=== PATIENT | female | born 2000 | race Asian ===

== ENCOUNTER 2021-08-17 01:22 | Emergency (ER) | payer OTHER ==
[~2021-08-17] VITALS: Ht 165.1 cm; Wt 49.9 kg
--- NOTE | 2021-08-17 02:04 | NUR ---
PATIENT TO ER TENT BED 1 FOR EVALUATION.
--- NOTE | 2021-08-17 02:07 | NUR ---
PATIENT AWAKE AND ALERT. PT C/O FEVER AND SORE THROAT. VSS. NO S/S OF ACUTE DISTRESS OR SOB NOTED AT THIS TIME. WILL CONTINUE TO MONITOR.
--- NOTE | 2021-08-17 02:10 | NUR ---
JUDY MARTINEZ SIN AT BEDSIDE EXAMINING PATIENT.
[2021-08-17 02:13] VITALS: BP_SYST 110
[2021-08-17] MEDS ORDERED: DEXAMETHASONE SOD PHOSPHATE 4 MG/ML VIAL PO ONE (03:30)
[2021-08-17 03:36] LABS: STREPTOCOCCUS A SCREEN (RAPID) NEGATIVE (NEGATIVE)
[2021-08-17 04:02] VITALS: BP_SYST 106
== END 2021-08-17 03:40 | disposition home or self-care (01) ==
LOC: SED 01:22
DX: J03.90 Acute tonsillitis, unspecified (principal); Z20.822 Contact with and (suspected) exposure to COVID-19
CPT/HCPCS: 86403; 87081; 87426; 99283; J1100; 36415

== ENCOUNTER 2021-12-14 20:24 | Emergency (ER) | payer OTHER ==
[~2021-12-14] VITALS: Ht 160 cm; Wt 54.0 kg
[2021-12-14 20:32] VITALS: BP_SYST 109
--- NOTE | 2021-12-14 20:35 | NUR ---
PATIENT STATES SHE HAS HAD PALPITATIONS WITH WEAKNESS/DIZZINESS FOR ONE WEEK. STATES SHE GOOGLED SYMPTOMS AND IS WORRIED SHE IS ANEMIC, NO OTHER COMPLAINTS AT THIS TIME.
[2021-12-14 21:23] LABS: BASOPHILS % (AUTO) 0.5 % (0.0-2.0); EOSINOPHILS % (AUTO) 0.1 % (0.0-4.0); HEMATOCRIT 40.6 % (36-48); HEMOGLOBIN 13.9 g/dL (12.0-16.0); LYMPHOCYTES # (AUTO) 1.7 K/uL (1.0-5.5); LYMPHOCYTES % (AUTO) 30.8 % (20.5-51.5); MEAN CORPUSCULAR HEMOGLOBIN 31 pg (27-31); MEAN CORPUSCULAR HGB CONC 34 % (32-36); MEAN CORPUSCULAR VOLUME 91 fL (79.0-98.0); MONOCYTES # (AUTO) 0.5 K/uL (0.0-1.0); MONOCYTES % (AUTO) 9.4 % (1.7-9.3); NEUTROPHILS # (AUTO) 3.2 K/uL (1.8-7.7); NEUTROPHILS % (AUTO) 59.2 % (40.0-70.0); PLATELET COUNT (AUTO) 342 K/uL (130-430); RED BLOOD CELL COUNT(AUTO) 4.49 MIL/uL (4.2-6.2); RED CELL DISTRIBUTION WIDTH 13.1 % (9.0-15.0); WHITE BLOOD COUNT (AUTO) 5.5 K/uL (4.8-10.8)
[2021-12-14 21:42] LABS: ANION GAP 9 (5-15); CALCIUM 8.8 mg/dL (8.4-11.0); CHLORIDE 103 mmol/L (98-107); CREATININE 1.17 mg/dL (0.55-1.30); GLUCOSE 111 mg/dL (70-99); POTASSIUM 3.3 mmol/L (3.5-5.1); UREA NITROGEN, BLOOD 13 mg/dL (8-21)
[2021-12-14 21:45] LABS: GFR AFRICAN AMERICAN 75 mL/min (>90)
[2021-12-14 21:50] LABS: ALANINE AMINOTRANSFERASE 8 U/L (12-78); ALBUMIN 3.7 g/dL (3.4-4.8); ASPARTATE AMINOTRANSFERASE 13 U/L (10-37); TOTAL BILIRUBIN 0.5 mg/dL (0.0-1.0)
--- NOTE | 2021-12-14 23:45 | NUR ---
PATIENT BROUGHT TO BED 8 AND WAITING FOR MD TO SEE. REPORT GIVEN TO GRACE BACA.
[2021-12-15] MEDS ORDERED: POTASSIUM CHLORIDE 20 MEQ TAB.PRT.SR PO ONE (01:30)
--- NOTE | 2021-12-15 01:35 | NUR ---
PT LAYING IN BED. NO SIGNS OF DISTRESS. PT LAUGHING AND TALKINBG TO VISITOR AT BEDSIDE PT TOLERATING PO. PT DRANK FULL WATER BOTTLE.
--- NOTE | 2021-12-15 01:36 | NUR ---
ORTHOSTATIC BLOOD PRESSURE REPORTED TO MD. WITHIN NORMAL RANGE. VSS -PT STABLE LAYING 104/67 SITTING 102/71 STANDING 100/72
--- NOTE | 2021-12-15 01:40 | NUR ---
PT TOLERATED PO TABLET FOR POTASSIUM. -NO N/V
[2021-12-15 01:44] VITALS: BP_SYST 102
[2021-12-15] MEDS ORDERED: ONDA-8 TL (02:40)
[2021-12-15] MEDS ORDERED: FAMO40TA7 PO (02:40)
--- NOTE | 2021-12-15 02:55 | NUR ---
PT CLEARED FOR DISCHARGE BY MD.Patient given written and verbal discharge instructions and verbalizes understanding. ER MD discussed with patient the results and treatment provided. Patient in stable condition. ID arm band removed. Patient educated on pain management and to follow up with PMD. Pain Scale 0. Opportunity for questions provided and answered. Medication side effect fact sheet provided.
== END 2021-12-15 02:55 | disposition home or self-care (01) ==
LOC: SED 20:24
DX: K52.9 Noninfective gastroenteritis and colitis, unspecified (principal); E86.0 Dehydration; R55 Syncope and collapse; R11.10 Vomiting, unspecified; F41.9 Anxiety disorder, unspecified; R00.2 Palpitations; Z79.899 Other long term (current) drug therapy
CPT/HCPCS: 36415; 71045; 80053; 83880; 84484; 85025; 93005; 99285

== ENCOUNTER 2023-04-20 18:13 | Emergency (ER) | payer OTHER ==
[~2023-04-20] VITALS: Ht 160 cm; Wt 52.2 kg
[~2023-04-20 18:13] MED LIST: FAMO40TA7 PO; ONDA-8 TL
[2023-04-20 18:15] VITALS: BP_SYST 123; PULSE 74; RESP 18; TEMP 97.3; O2SAT 100
[2023-04-20 19:53] LABS: CALCIUM 8.7 mg/dL (8.4-11.0); CREATININE 0.8 mg/dL (0.55-1.30); POTASSIUM 3.9 mmol/L (3.5-5.1)
[2023-04-20 19:55] LABS: ERYTHROCYTE SEDIMENTATION RATE 14 MM/HR (0-20)
[2023-04-20 19:58] LABS: BASOPHILS % (AUTO) 0.4 % (0.0-2.0); EOSINOPHILS # (AUTO) 0.2 K/uL (0.0-0.4); EOSINOPHILS % (AUTO) 2.1 % (0.0-4.0); HEMATOCRIT 38.2 % (36-48); LYMPHOCYTES # (AUTO) 2.1 K/uL (1.0-5.5); LYMPHOCYTES % (AUTO) 21.7 % (20.5-51.5); MEAN CORPUSCULAR HEMOGLOBIN 31 pg (27-31); MEAN CORPUSCULAR HGB CONC 34 % (32-36); MEAN CORPUSCULAR VOLUME 91 fL (79.0-98.0); MONOCYTES # (AUTO) 0.8 K/uL (0.0-1.0); MONOCYTES % (AUTO) 8.4 % (1.7-9.3); NEUTROPHILS # (AUTO) 6.6 K/uL (1.8-7.7); NEUTROPHILS % (AUTO) 67.4 % (40.0-70.0); PLATELET COUNT (AUTO) 346 K/uL (130-430); RED BLOOD CELL COUNT(AUTO) 4.21 MIL/uL (4.2-6.2); RED CELL DISTRIBUTION WIDTH 13.6 % (9.0-15.0); WHITE BLOOD COUNT (AUTO) 9.7 K/uL (4.8-10.8)
[2023-04-20] MEDS: IBUPROFEN 600 MG TABLET PO ONE (21:04)
[2023-04-20] MEDS: HYDROcodone/ACETAMIN 5-325 MG TAB (NORCO/ VICODIN) PO ONE (21:05)
[2023-04-20] MEDS ORDERED: IBUP-1969 PO (21:31)
[2023-04-20] MEDS ORDERED: HYDR-3917 PO (21:31)
[2023-04-20 21:39] VITALS: BP_SYST 120; PULSE 72; RESP 18; TEMP 97.6; O2SAT 100
[2023-04-20 21:47] LABS: COVID19 ANTIGEN SOFIA FIA NEGATIVE (NEGATIVE)
[2023-04-20 21:48] LABS: INFLUENZA TYPE A Negative (NEGATIVE); INFLUENZA TYPE B NEGATIVE (NEGATIVE)
== END 2023-04-20 21:39 | disposition home or self-care (01) ==
LOC: SED 18:13
DX: R51.9 Headache, unspecified (principal); Z79.899 Other long term (current) drug therapy; Z20.822 Contact with and (suspected) exposure to COVID-19
CPT/HCPCS: 36415; 70450-TC; 76376; 80048; 85025; 85651; 99284